=== PATIENT | female | born 1985 | race Caucasian/White ===

== ENCOUNTER → 2016-03-10 | Outpatient (CLI) | payer OTHER ==
--- NOTE | 2016-03-10 13:07 | US ---
Ultrasound left breast History: Palpable nodule upper outer left breast on physical exam. Findings: Ultrasound of the upper outer left breast 2 o'clock position about 5 cm from the nipple con firms a well-circumscribed oval probable hamartoma with surrounding capsule. The internal architectur e is similar to surrounding breast parenchyma. This measures 2.2 x 2.7 x 1.2 cm. There is some r d intern al color flow enhancement. No additional solid or cystic mass is seen. 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 Followup ultrasound in 6 months is rec ommended to confirm stability and benign features. BI-RADS 3 Clinical followup is recommended on all palpable nodules. Despite negative or benign imaging, if the palpable abnormality increases in size, additional imaging followup may be necessary or possibly maya gical consultation. The results of this study were reviewed with the patient.
== END ==
LOC: FIMAGING 12:03
PROVIDERS: ATTEND Internal Medicine
DX: N63 Unspecified lump in breast (principal)